=== PATIENT | female | born 2005 | race Caucasian/White ===

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

== ENCOUNTER → 2023-03-25 18:09 | Outpatient (BNVA) | payer MEDICAID, SELFPAY | PROVIDERS: Visit Provider Family Medicine | DX: R50.9 Fever, unspecified (principal); U07.1 COVID-19 | CPT/HCPCS: 87426 ==

== ENCOUNTER → 2023-06-01 16:41 | Outpatient (BNVA) | payer MEDICAID, SELFPAY | PROVIDERS: Visit Provider Registered Nurse Neonatal Intensive Care | DX: R50.9 Fever, unspecified (principal); B34.9 Viral infection, unspecified | CPT/HCPCS: 87426 ==

== ENCOUNTER 2023-07-05 22:30 | Emergency (ER) | payer MEDICAID, SELFPAY ==
[2023-07-05 22:33] VITALS: BP 128/39; PULSE 99; RESP 18; TEMP 36.8; O2SAT 99
[2023-07-05 22:54] VITALS: BP 121/68; PULSE 82; RESP 16; O2SAT 98
[2023-07-05 23:03] LABS: Basophils # 0.1 10^3/uL (0.0-0.1); Basophils % 1.2 %; Eosinophils # 0.1 10^3/uL (0.0-0.8); Eosinophils % 1.2 %; Hematocrit 37.1 % (36-47); Lymphocytes # 3.9 10^3/uL (1.5-6.5); Lymphocytes % 31.9 %; Mean Corpuscular HGB Conc 31.5 g/dL (30-55); Mean Corpuscular Hemoglobin 26.7 pg (27-33); Mean Corpuscular Volume 84.5 fl (85-98); Mean Platelet Volume 10.6 fL (7.4-10.4); Monocytes % 8.5 %; Neutrophils # 6.89 10^3/uL (1.8-8.0); Nucleated Red Blood Cells % 0 %; Platelet Count 355 10^3/cmm (157-399); Red Blood Count 4.39 10^6/uL (3.85-5.65); Red Cell Distribution Width 12.8 % (12.1-15.1); White Blood Count 12.09 10^3/uL (4.5-13.0)
[2023-07-05 23:18] LABS: HCG, Serum Qual Negative (Negative)
[2023-07-05 23:22] VITALS: BP 124/77; PULSE 86; RESP 16; O2SAT 98
[2023-07-05 23:29] LABS: Alanine Aminotransferase 19 U/L (0-33); Albumin Level 4.9 g/dL (3.5-5.2); Alkaline Phosphatase 107 U/L (35-105); Anion Gap 16.6 (5-19); Aspartate Amino Transferase 24 U/L (0-32); Blood Urea Nitrogen 14 mg/dL (6-20); Carbon Dioxide 22 mmol/L (22-29); Chloride 105 mmol/L (98-107); Globulin 2.5 g/dL (1.3-4.6); Glomerular Filtration Rate 80.7 mL/min (90-130); Glucose 93 mg/dL (65-115); Lipase 22 U/L (13-60); Osmolality Calculated 290 mOsm/kg (285-295); Potassium 3.6 mmol/L (3.5-5.1); Sodium 140 mmol/L (136-145); Total Bilirubin 0.3 mg/dL (0.15-1.2); Total Protein 7.4 g/dL (6.6-8.7)
[2023-07-05 23:33] VITALS: RESP 16
[2023-07-05] MEDS: ondansetron 2 mg/ML SDV 2 mL 4 MG IVP (23:33)
[2023-07-05] MEDS: morphine 4 mg/mL SDV 1 mL IVP (23:33)
[2023-07-06 01:18] LABS: Add Urine Microscopic? YES; Bilirubin Urine Neg (Negative); Blood Urine Trace (Negative); Glucose Urine UA Norm (Normal); Ketones Urine 3+ (Negative); Leukocyte Esterase Urine Trace (Negative); Nitrate Urine Negative (Negative); Protein Urine 1+ (Negative); Specific Gravity, Urine 1.025 (1.005-1.030); Urine Appearance Clear (CLEAR); Urine Color Yellow (Yellow); Urobilinogen Urine Neg (Negative); pH Urine 5 (5-7)
[2023-07-06 01:19] LABS: Add Urine Culture? No; Amorphous Sediment Urine 1+ /hpf; Mucus Urine 3+ /hpf; RBC Urine 0-4 /hpf (0-2); WBC Urine RARE /hpf (0-5)
[2023-07-06] MEDS: ketorolac 30 mg/mL INJ 15 MG IVP (01:28)
--- NOTE | 2023-07-06 05:35 | W.ED.ABDPA2 ---
HPI - Abdominal Pain General: Chief Complaint: Abdominal Pain Stated Complaint: abdomen pain, nausea Time Seen by Provider: 07/05/23 22:40 History of Present Illness: 17-year-old female, non, complaining of suprapubic pelvic pain. She says it is mildly worse on the right than the left. This evidently happened acutely, after intercourse. She is concerned. No vaginal bleeding. No vomiting. No fever. No dysuria prior. Associated Symptoms: Reports nausea; Denies dysuria, fever(s) and vomiting Review of Systems Const: Denies: fever(s) ENMT: Denies: throat pain Card: Denies: chest pain Resp: Denies: dyspnea GI: Reports: abdominal pain and nausea; Denies: vomiting : Reports: vaginal discharge; Denies: flank pain, difficulty voiding, dysuria or vaginal bleeding Musc: Denies: back pain PFS ED PFSH: Medical History Acute viral syndrome Social History Smoking and tobacco/nicotine status: current every day tobacco/nicotine user (vape) Alcohol intake: current Female Reproductive History: Spontaneous abortions: No Physical Exam Const: COMMON NORMALS: no acute distress GENERAL APPEARANCE: cooperative; not ill appearing and not frail appearing HENMT: COMMON NORMALS: normocephalic, atraumatic and Normal external nose present HEAD & SCALP: normocephalic and atraumatic FACE & SINUS: normal facial exam and face symmetric NOSE: Normal external nose present Eye: COMMON NORMALS: Equal, round and reactive pupils present and EOMs intact bilaterally PUPIL: Yes Equal, round and reactive pupils present Neck/C-Spine: GENERAL: Yes trachea midline Chest: CHEST: Yes Symmetrical chest wall rise Resp: COMMON NORMALS: normal respiratory effort, No retractions, No use of accessory muscles and clear to auscultation bilaterally AUSCULTATION: clear to auscultation bilaterally Cardio: COMMON NORMALS: regular rate and regular rhythm RATE: regular rate RHYTHM: regular rhythm GI: COMMON NORMALS: Normal to inspection, nondistended, normoactive bowel sounds present PALPATION: Yes Tenderness to palpation present (GI) (suprapubic) and No Guarding due to palpation present (GI) : SPECULUM EXAM - VAGINA: No erythematous, No mass, No swelling and No tenderness SPECULUM EXAM - CERVIX: No Cervical os open, Yes Cervical os closed, No Cervical bleeding, No mucoid cervix, No watery cervix, No Abnormal cervical discharge present, No Cervical lesion present, No Cervical mass present and No Cervical laceration present OB/EXTERNAL & SPECULUM: No Cervical os open Extremity: COMMON NORMALS: no pedal edema Neuro: OSCAR COMA SCALE: document GCS findings [place] coma scale eye opening: Spontaneous Oscar coma scale verbal response: Orientated Oscar coma scale motor response: Obey commands [place] coma scale total score: 15 SENSORY EXAM: Yes extremities (intact) Psych: COMMON NORMALS: speech normal SPEECH: Yes normal speech Skin: COMMON NORMALS: no rashes or lesions noted GENERAL SKIN EXAM: no rashes or lesions noted Course Vital Signs: Vital signs: Vital Signs Temperature 98.2 F 07/05/23 22:33 Pulse Rate 86 07/05/23 23:22 Respiratory Rate 16 07/05/23 23:33 Blood Pressure 124/77 07/05/23 23:22 Pulse Oximetry 98 07/05/23 23:22 MDM - Abdominal Pain Medical Decision Making Pelvic exam reveals a swollen cervix without any discharge. GC and Chlamydia samples were sent via urine. Urinalysis is negative. Other laboratory is benign including CRP which is normal at 3. Patient will return for any worsening symptoms despite treatment in the meantime. She will call for her results. Lab Data 07/05/23 22:49 07/05/23 22:49 Labs/Radiology: Laboratory Results WBC 12.09 10^3/uL (4.5-13.0) 07/05/23 22:49 RBC 4.39 10^6/uL (3.85-5.65) 07/05/23 22:49 Hgb 11.70 g/dL (12.4-14.8) L 07/05/23 22:49 Hct 37.1 % (36-47) 07/05/23 22:49 MCV 84.5 fl (85-98) L 07/05/23 22:49 MCH 26.7 pg (27-33) L 07/05/23 22:49 MCHC 31.5 g/dL (30-55) 07/05/23 22:49 RDW 12.8 % (12.1-15.1) 07/05/23 22:49 Plt Count 355 10^3/cmm (157-399) 07/05/23 22:49 MPV 10.6 fL (7.4-10.4) H 07/05/23 22:49 Neut % (Auto) 57.0 % 07/05/23 22:49 Lymph % (Auto) 31.9 % 07/05/23 22:49 [place] % (Auto) 8.5 % 07/05/23 22:49 Eos % (Auto) 1.2 % 07/05/23 22:49 Baso % (Auto) 1.2 % 07/05/23 22:49 Neut # (Auto) 6.89 10^3/uL (1.8-8.0) 07/05/23 22:49 Lymph # (Auto) 3.9 10^3/uL (1.5-6.5) 07/05/23 22:49 [place] # (Auto) 1.0 10^3/uL (0.2-0.9) H 07/05/23 22:49 Eos # (Auto) 0.1 10^3/uL (0.0-0.8) 07/05/23 22:49 Baso # (Auto) 0.1 10^3/uL (0.0-0.1) 07/05/23 22:49 Nucleated RBC % (auto) 0 % 07/05/23 22:49 Nucleated RBCs # 0.0 /100WBC 07/05/23 22:49 Sodium 140 mmol/L (136-145) 07/05/23 22:49 Potassium 3.6 mmol/L (3.5-5.1) 07/05/23 22:49 Chloride 105 mmol/L (98-107) 07/05/23 22:49 Carbon Dioxide 22 mmol/L (22-29) 07/05/23 22:49 Anion Gap 16.6 (5-19) 07/05/23 22:49 BUN 14 mg/dL (6-20) 07/05/23 22:49 Creatinine 0.9 mg/dL (0.5-0.9) 07/05/23 22:49 GFR Calculation 80.7 mL/min (90-130) L 07/05/23 22:49 Glucose 93 mg/dL (65-115) 07/05/23 22:49 Calculated Osmolality 290 mOsm/kg (285-295) 07/05/23 22:49 Calcium 10.0 mg/dL (8.5-10.5) 07/05/23 22:49 Total Bilirubin 0.3 mg/dL (0.15-1.2) 07/05/23 22:49 AST 24 U/L (0-32) 07/05/23 22:49 ALT 19 U/L (0-33) 07/05/23 22:49 Alkaline Phosphatase 107 U/L (35-105) H 07/05/23 22:49 C-Reactive Protein 3.0 mg/L (0.0-4.9) 07/05/23 22:49 Total Protein 7.4 g/dL (6.6-8.7) 07/05/23 22:49 Albumin 4.9 g/dL (3.5-5.2) 07/05/23 22:49 Globulin 2.5 g/dL (1.3-4.6) 07/05/23 22:49 Lipase 22 U/L (13-60) 07/05/23 22:49 HCG, Qual Negative (Negative) 07/05/23 22:49 Urine Color Yellow (Yellow) 07/06/23 00:55 Urine Appearance Clear (CLEAR) 07/06/23 00:55 Urine pH 5 (5-7) 07/06/23 00:55 Ur Specific [place] 1.025 (1.005-1.030) 07/06/23 00:55 Urine Protein 1+ (Negative) H 07/06/23 00:55 Urine Glucose (UA) Norm (Normal) 07/06/23 00:55 Urine Ketones 3+ (Negative) H 07/06/23 00:55 Urine Blood Trace (Negative) H 07/06/23 00:55 Urine Nitrate Negative (Negative) 07/06/23 00:55 Urine Bilirubin Neg (Negative) 07/06/23 00:55 Urine Urobilinogen Neg mg/dL (Negative) 07/06/23 00:55 Ur Leukocyte Esterase Trace (Negative) H 07/06/23 00:55 Urine RBC 0-4 /hpf (0-2) H 07/06/23 00:55 Urine WBC Rare /hpf (0-5) 07/06/23 00:55 Ur Squamous Epith Cells 5-10 /hpf (0-5) H 07/06/23 00:55 Amorphous Sediment 1+ /hpf 07/06/23 00:55 Urine Bacteria None /hpf (NONE) 07/06/23 00:55 Urine Mucus 3+ /hpf 07/06/23 00:55 No radiology studies performed this visit Discharge Plan Discharge Patient Disposition: Home Clinical Impression: Pelvic pain Condition: Stable Prescriptions: New ketorolac 10 mg tablet 10 mg PO TID PRN (Reason: pain) Qty: 10 0RF Discharge Orders: Discharge ED (Routine); Ordered 07/06/23 Ordered By: Benjy Villa Referrals: Christiano Randle MD [Primary Care Provider] - 1-3 days Patient Instructions: Pelvic Pain (ED), Opioid Safety, Pain Management Activity Restrictions/Additional Instructions: Return for worsening pain despite treatment, fever greater than 100, vomiting liquids or medications, brisk vaginal bleeding, other concerning symptoms. You may call back to get the results of your other tests as early as tomorrow afternoon. See your doctor next week. Coding Level of Care Code ED Supervisor Of Instruction for Nick Abrams
[2023-07-07 18:35] LABS: Chlamydia Trachomatis RNA TMA NOT DETECTED (NOT DETECTED); Neisseria Gonorrhoeae RNA, TMA NOT DETECTED (NOT DETECTED)
== END 2023-07-06 01:32 | disposition home or self-care (01) ==
PROVIDERS: Emergency Provider Emergency Medicine; PCP Family Medicine
DX: R10.2 Pelvic and perineal pain (principal); F17.290 Nicotine dependence, other tobacco product, uncomplicated
CPT/HCPCS: 80053; 81001; 83690; 84703; 85025; 86140; 87491; 87591; 96374; 96375; 99284; J1885; J2270; J2405

== ENCOUNTER 2024-02-20 19:57 | Emergency (ER) | payer MEDICAID, SELFPAY ==
[2024-02-20 20:09] VITALS: BP 127/82; PULSE 94; RESP 14; TEMP 37.2; O2SAT 97
--- NOTE | 2024-02-20 20:56 | ED_ITS ---
HPI - Wound/Laceration General: Chief Complaint: Wound/Laceration Stated Complaint: Busted Chin Time Seen by Provider: 02/20/24 20:15 Source: patient Mode of arrival: ambulatory Limitations: no limitations History of Present Illness: 18-year-old female who was playing softb all tonight and had a softball hit her in the chin happened just prior to arrival she denies any loss of conscious she does have a laceration to her chin denies any other injuries. Associated symptoms: Denies chills, fever(s), nausea or vomiting Review of Systems Const: Denies: fever(s) or chills ENMT: Denies: throat pain or dental pain Card: Denies: chest pain Resp: Denies: dyspnea GI: Denies: abdominal pain, nausea, vomiting or diarrhea Musc: Denies: neck pain or back pain Skin/Breast: Denies: rash Neuro: Denies: headache(s) PFS ED PFSH: Medical History Acute viral syndrome Social History Smoking and tobacco/nicotine status: current every day tobacco/nicotine user (vape) Alcohol intake: current Female Reproductive History: Spontaneous abortions: No Physical Exam Const: COMMON NORMALS: no acute distress, patient oriented x3 and healthy appearing HENMT: COMMON NORMALS: normocephalic and atraumatic HEAD & SCALP: normocephalic and atraumatic OTHER: 4 cm laceration to chin Eye: COMMON NORMALS: Equal, round and reactive pupils present and EOMs intact bilaterally PUPIL: Yes Equal, round and reactive pupils present Neck/C-Spine: COMMON NORMALS: full ROM and supple Chest: COMMONS NORMALS: normal inspection of the chest Resp: COMMON NORMALS: normal respiratory effort Cardio: COMMON NORMALS: regular rate RATE: regular rate Extremity: COMMON NORMALS: normal to inspection and full ROM Neuro: COMMON NORMALS: patient oriented x3, moves all extremities and no focal motor deficits Psych: COMMON NORMALS: mental status grossly normal, Normal thought process present and cooperative THOUGHT PROCESS: Normal thought process present Skin: COMMON NORMALS: no rashes or lesions noted and no wounds GENERAL SKIN EXAM: no rashes or lesions noted Procedures Laceration Laceration 1: Site: face Size (cm): 4 Description: linear Local Anesthetic: lidocaine 1% Amount of anesthesia used (mL): 8 Pre-repair: wound explored, irrigated extensively and deep structures intact Skin layer closed with: nylon Size (cm): 5-0 Number of sutures: 5 Technique: simple, interrupted Course Vital Signs: Vital signs: Vital Signs Temperature 98.9 F 02/20/24 20:09 Pulse Rate 94 02/20/24 20:09 Respiratory Rate 14 02/20/24 20:09 Blood Pressure 127/82 02/20/24 20:09 Pulse Oximetry 97 02/20/24 20:09 Oxygen Delivery Me thod Room Air 02/20/24 20:09 MDM - Wound/Laceration Medical Decision Making Patient presents here with a laceration to her chin laceration was repaired she is to have sutures removed in 10 days follow-up with PCP return if worsening understands agrees to plan Medical Records I reviewed the patient's medical records. No radiology studies performed this visit Discharge Plan Discharge Patient Disposition: Home Clinical Impression: Laceration Condition: Stable Prescriptions: No Action trazodone 50 mg tablet 50 mg PO DAILY ondansetron 4 mg tablet,disintegrating 4 mg PO Q6H PRN (Reason: nausea and vomiting) Qty: 10 0RF Discharge Orders: Discharge ED (Routine); Ordered 02/20/24 Ordered By: Serena Mahajan Referrals: Christiano Randle MD [Primary Care Provider] - 7-10 days Discharge Diet: Advance as tolerated Discharge Activity: Resume usual activity Patient Instructions: Care For Your Stitches (ED), Laceration (ED) Activity Restrictions/Additional Instructions: suture removal in 10 days Stand Alone Forms: Work/School Release Coding Level of Care Code ED Quality Assurance/R&D Lab Technician for Nick Abrams
== END 2024-02-20 21:22 | disposition home or self-care (01) ==
PROVIDERS: Emergency Provider Emergency Medicine; PCP Family Medicine
DX: S01.81XA Laceration without foreign body of other part of head, initial encounter (principal); F17.290 Nicotine dependence, other tobacco product, uncomplicated; W21.07XA Struck by softball, initial encounter; Y93.64 Activity, baseball
CPT/HCPCS: 12013; 99282

== ENCOUNTER 2024-04-03 22:06 | Emergency (ER) | payer MEDICAID, SELFPAY ==
[2024-04-03 22:11] VITALS: BP 105/70; PULSE 111; RESP 18; TEMP 36.8; O2SAT 100
--- NOTE | 2024-04-03 22:16 | XRR_ITS ---
PROCEDURE INFORMATION: Exam: XR Right Ankle Exam date and time: 04/03/2024 10:30 PM Age: 18 years old Clinical indication: Injury or trauma; Fall; Blunt trauma; Right; Patient HX: C/O RT ankle pain after jumping off of rooftop into a pool. Diffuse swelling noted to ankle. ; Additional info: Fall/pain/swelling TECHNIQUE: Imaging protocol: Radiologic exam of the right ankle. Views: 3 or more views. COMPARISON: No relevant prior studies available. FINDINGS: Bones/joints: No acute fracture or dislocation. Ankle mortise appears preserved. Soft tissues: Soft tissue swelling. XR/XR ankle RT min 3V* [id number] IMPRESSION: 1. No acute fracture or dislocation. 2. Soft tissue swelling.
--- NOTE | 2024-04-03 23:50 | ED_ITS ---
HPI - Extremity Problem General: Chief complaint: Extremity Injury, Lower Stated complaint: Ankle injury Time Seen by Provider: 04/03/24 23:35 Source: patient Mode of arrival: wheelchair Limitations: no limitations History of Present Illness: Patient is 18-year-old female presenting to the emergency department complaining of right ankle pain prior to arrival. Patient reporting that she had an ankle injury, unknown exactly what happened as it all happened so quick. However she has not been able to bear weight on that foot, no swelling to the medial and lateral aspect. It is tender radiating up to mid conn, also has some pain with range of motion. No distal sensory changes reported. She does arrive in a wheelchair, appears in distress from the pain. No previous surgeries or injuries to that foot. No other symptoms reported at this time. MD Complaint: joint pain Location: right and lower extremity Radiation: proximal Relieving factors: nothing Exacerbating factors: range of motion, weight bearing and walking Associated symptoms: Deny chest pain, fever(s) or rash Review of Systems General: Reports: 10 or more systems reviewed and unremarkable except in HPI and below Const: Denies: fever(s) or chills Card: Denies: chest pain Resp: Denies: dyspnea or productive cough GI: Denies: abdominal pain, nausea, vomiting or diarrhea : Denies: flank pain Musc: Reports: extremity pain, joint pain (Right ankle), joint swelling and limited range of motion; Denies: neck pain, back pain, extremity swelling, joint redness, joint warmth or muscle weakness Skin/Breast: Denies: rash Neuro: Denies: headache(s), numbness in extremities or weakness in extremities PFS ED PFSH: Medical History Acute viral syndrome Social History Smoking and tobacco/nicotine status: current every day tobacco/nicotine user (vape) Alcohol intake: current Female Reproductive History: Spontaneous abortions: No Physical Exam Const: COMMON NORMALS: patient oriented x3, no limitations, healthy appearing, alert and well nourished GENERAL APPEARANCE: in distress HENMT: COMMON NORMALS: normocephalic and atraumatic HEAD & SCALP: no rmocephalic and atraumatic Neck/C-Spine: COMMON NORMALS: full ROM, supple and no meningeal signs Resp: COMMON NORMALS: normal respiratory effort, No use of accessory muscles and clear to auscultation bilaterally AUSCULTATION: clear to auscultation bilaterally Cardio: COMMON NORMALS: regular rate and regular rhythm RATE: regular rate RHYTHM: regular rhythm Extremity: COMMON NORMALS: capillary refill normal, no clubbing, cyanosis or edema, no calf tenderness and no pedal edema NARRATIVE EXTREMITY EXAM: Swelling noted to the medial and lateral malleolus of the right foot. This area is exquisitely tender to palpation. Good pulses. Positive ankle squeeze test. Negative calcaneal squeeze. Severely limited range of motion due to the pain. No bruising or traumatic deformity noted on examination. Neuro: COMMON NORMALS: patient oriented x3, moves all extremities, no focal motor deficits and no sensory deficits noted SENSORIUM/ORIENTATION: Yes alert MENINGEAL SIGNS: Yes no meningeal signs Skin: COMMON NORMALS: no rashes or lesions noted GENERAL SKIN EXAM: no rashes or lesions noted Course Vital Signs: Vital signs: Vital Signs Temperature 98.2 F 04/03/24 22:11 Pulse Rate 111 H 04/03/24 22:11 Respiratory Rate 18 04/03/24 22:11 Blood Pressure 105/70 04/03/24 22:11 Pulse Oximetry 100 04/03/24 22:11 Oxygen Delivery Me thod Room Air 04/03/24 22:11 MDM - Extremity (Nontraumatic) Medical Decision Making Patient presented with a right ankle injury after unspecified fall at a pool constitution party. She is unsure of exactly what happened, however has edema noted to the lateral aspect, some to the medial aspect of the right ankle. Exquisitely tender and she has not been able to bear weight. X-rays performed and there there was soft tissue swelling noted, no obvious fracture. On examination she did have a positive high ankle squeeze and due to the amount of pain and swelling already, I do believe she has a high ankle sprain and I will for her orthopedics. She will be given crutches and placed in Lenin bandage, instructed to do RICE therapy and return with any new or worsening symptoms. XR interpretation done by ED provider, pending radiology final review ED provider radiology interpretation(s): X-ray right ankle. Soft tissue swelling noted to lateral malleolus. No obvious fracture or dislocation at this time. Discharge Plan Discharge Patient Disposition: Home Clinical Impression: High ankle sprain Qualifiers: Encounter type: initial encounter Laterality: right Qualified Code(s): S93.491A - Sprain of other ligament of right ankle, initial encounter Condition: Stable Prescriptions: No Action trazodone 50 mg tablet 50 mg PO DAILY ondansetron 4 mg tablet,disintegrating 4 mg PO Q6H PRN (Reason: nausea and vomiting) Qty: 10 0RF Discharge Orders: Discharge ED (Routine); Ordered 04/04/24 Ordered By: Chinmay Germain Referrals: Christiano Randle MD [Primary Care Provider] - Discharge Diet: As Directed Discharge Activity: Use walker/crutches as instructed Patient Instructions: Ankle Sprain (ED) Activity Restrictions/Additional Instructions: Use crutches as needed. Rest, ice, compression, and elevation. Follow-up with orthopedics as needed. Take Tylenol or ibuprofen for any pain. Gentle range of motion exercises and weightbearing as tolerated. Return with any new or concerning symptoms you may have. Coding Level of Care Code ED Deli Manager for Nick Abrams
[2024-04-04] MEDS: naproxen 500 mg Tablet PO (00:11)
[2024-04-04 00:13] VITALS: BP 116/70; PULSE 99; O2SAT 97
[2024-04-04 00:30] VITALS: BP 116/69; PULSE 87; O2SAT 100
--- NOTE | 2024-04-04 03:15 | DCPLANNER ---
Message sent to Ortho for follow up. High ankle sprain.
== END 2024-04-04 01:22 | disposition home or self-care (01) ==
PROVIDERS: Emergency Provider Physician Assistant; PCP Family Medicine
DX: S93.491A Sprain of other ligament of right ankle, initial encounter (principal); F17.290 Nicotine dependence, other tobacco product, uncomplicated; X58.XXXA Exposure to other specified factors, initial encounter
CPT/HCPCS: 73610; 99283

== ENCOUNTER 2024-05-05 14:19 | Outpatient (CLI) | payer MEDICAID, SELFPAY ==
--- NOTE | 2024-05-05 14:30 | MR_ITS ---
WS: [id number] MRI OF THE RIGHT LOWER EXTREMITY. INDICATION: Trauma jumping in pool. TECHNIQUE: Sagittal T1, sagittal STIR, coronal T1, coronal STIR, axial PD, axial T2 fat-sat FINDINGS: Patient will be returning for MRI ankle at a later date Suggestion of tiny nondisplaced hairline fracture involving the proximal tibial metaphysis extending to the articular surface medial greater than lateral tibial plateau. Diffuse edema involving the prox imal tibia extending to the articular surface and tibial plateau posteriorly. In addition, small nondisplaced fracture with edema involving the head of the fibula. Tibial shaft ap pears normal. Partially visualized edema in the posterior tibial plafond and. MR/MR lower leg RT wo con* [id number] IMPRESSION: Some images are graded by motion. 1. Nondisplaced hairline fracture involving the proximal tibial metaphysis whi ch appears to extend to the medial and lateral tibial plateau posteriorly worse involving the medial tibial plateau. This extends to the articular surface wit h diffuse edema. Minimal depression of the tibial plateau. Findings could be fo llowed up with CT to assess for healing. 2. Additional small nondisplaced fracture with edema involving the head of the fibula. 3. Partially visualized edema in the posterior tibial plafond. MRI of the ankl e to be performed at a later date.
== END 2024-05-05 14:20 | disposition home or self-care (01) ==
LOC: RAD 14:19
PROVIDERS: PCP Family Medicine; Visit Provider Podiatrist Foot & Ankle Surgery
DX: S82.454A Nondisplaced comminuted fracture of shaft of right fibula, initial encounter for closed fracture (principal); S82.101A Unspecified fracture of upper end of right tibia, initial encounter for closed fracture; M95.8 Other specified acquired deformities of musculoskeletal system; R60.0 Localized edema; X58.XXXA Exposure to other specified factors, initial encounter
CPT/HCPCS: 73718

== ENCOUNTER 2024-05-07 14:12 | Outpatient (CLI) | payer MEDICAID, SELFPAY ==
--- NOTE | 2024-05-07 14:30 | MRR_ITS ---
PROCEDURE INFORMATION: Exam: MR Right Lower Extremity Joint Without Contrast; Ankle Exam date and time: 05/07/2024 2:23 PM Age: 18 years old Clinical indication: Pain and injury or trauma; Other: Jumped from rope into pool and hit bottom of pool jamming ankle; Blunt trauma; Right; Additional info: Surgical planning, -suspect gastric tear TECHNIQUE: Imaging protocol: Magnetic resonance imaging of the right lower extremity without contrast. Exam focused on the ankle. COMPARISON: CR (LOW EXM, ) 04/03/2024 10:30 PM FINDINGS: Bones/joints: Cancellous bone edema of the posterior distal tibial epiphysis. Diffuse cancellous bone edema of the central-medial talar dome and posterior talar body extending to the subchondral posterior facet. Cancellous bone edema of the posterior base of the 1st and 2nd metatarsals. Mild cancellous bone edema of the plantar proximal medial cuneiform. Cancellous bone edema of the posterior medial malleolus and anterior distal fibula. Small tibiotalar joint effusion. An os tibiale externum is present, a sometimes symptomatic normal variant. Mild subchondral bone impaction posterolateral talar dome (series 1001, image 12). LIGAMENTS: Distal tibiofibular syndesmosis: Complete lateral tear of the anterior tibiofibular ligament (series 401, image 12). Anterior talofibular ligament: Unremarkable. No tear. Anterior tibiofibular: Unremarkable. No tear Posterior tibiofibular ligament: Low-grade partial tear of the posterior tibiofibular ligament (series 401, image 14), mild focal periosteal stripping of the upper lateral margin of the tibial attachment (series 401, image 12). Calcaneofibular ligament: No tear. Deltoid ligament complex: Unremarkable. No tear. TENDONS: Flexor tendons of foot: Unremarkable as visualized. Tibialis posterior tendon: Unremarkable as visualized. Peroneal tendons: Unremarkable as visualized. Extensor tendons of foot: Unremarkable as visualized. Tibialis anterior tendon: Unremarkable as visualized. Achilles tendon: Unremarkable as visualized. Tarsal canal (Sinus tarsi): Unremarkable. Normal signal of the fat. Tarsal tunnel: Unremarkable. Soft tissues: Mild bimalleolar soft tissue edema. Plantar fascia: Plantar fascia is unremarkable. MR/MR ankle RT wo con* [id number] IMPRESSION: 1. Complete tear of the anterior tibiofibular ligament. 2. Low-grade partial tears of the posterior talofibular ligament. 3. Multiple bone bruises. 4. Mild subchondral bone impaction fracture posterolateral talar dome 5. Small tibiotalar joint effusion.
== END 2024-05-07 14:13 | disposition home or self-care (01) ==
LOC: RAD 14:12
PROVIDERS: PCP Family Medicine; Visit Provider Podiatrist Foot & Ankle Surgery
DX: S93.431A Sprain of tibiofibular ligament of right ankle, initial encounter (principal); S92.144A Nondisplaced dome fracture of right talus, initial encounter for closed fracture; S90.01XA Contusion of right ankle, initial encounter; M95.8 Other specified acquired deformities of musculoskeletal system; W16.522A Jumping or diving into swimming pool striking bottom causing other injury, initial encounter
CPT/HCPCS: 73721

== ENCOUNTER 2024-05-25 14:25 | Outpatient (RCR) | payer MEDICAID, SELFPAY | END 2024-06-01 23:59 | disposition home or self-care (01) | LOC: SPT 14:25 | PROVIDERS: PCP Family Medicine; Visit Provider Podiatrist Foot & Ankle Surgery | DX: S93.401D Sprain of unspecified ligament of right ankle, subsequent encounter (principal); S82.51XD Displaced fracture of medial malleolus of right tibia, subsequent encounter for closed fracture with routine healing; X58.XXXD Exposure to other specified factors, subsequent encounter | CPT/HCPCS: 97161 ==

== ENCOUNTER 2024-06-02 06:00 | Outpatient (RCR) | payer MEDICAID, SELFPAY | END 2024-07-02 23:59 | disposition home or self-care (01) | LOC: SPT 06:00 | PROVIDERS: PCP Family Medicine; Visit Provider Podiatrist Foot & Ankle Surgery | DX: S93.401D Sprain of unspecified ligament of right ankle, subsequent encounter (principal); S82.51XD Displaced fracture of medial malleolus of right tibia, subsequent encounter for closed fracture with routine healing; X58.XXXD Exposure to other specified factors, subsequent encounter | CPT/HCPCS: 97110; 97112 ==

== ENCOUNTER 2024-07-03 06:00 | Outpatient (RCR) | payer MEDICAID, SELFPAY | END 2024-07-10 23:59 | disposition home or self-care (01) | LOC: SPT 06:00 | PROVIDERS: PCP Family Medicine; Visit Provider Podiatrist Foot & Ankle Surgery | DX: S93.401D Sprain of unspecified ligament of right ankle, subsequent encounter (principal); S82.51XD Displaced fracture of medial malleolus of right tibia, subsequent encounter for closed fracture with routine healing; X58.XXXD Exposure to other specified factors, subsequent encounter | CPT/HCPCS: 97110 ==

== ENCOUNTER 2024-11-11 00:06 | Emergency (ER) | payer MEDICAID, SELFPAY ==
[2024-11-11 00:08] VITALS: BP 113/74; PULSE 95; RESP 15; TEMP 36.7; O2SAT 100; BMI 19.5
--- NOTE | 2024-11-11 00:11 | ECG_ITS ---
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
--- NOTE | 2024-11-11 00:23 | XRR_ITS ---
PROCEDURE INFORMATION: Exam: XR Chest Exam date and time: 11/11/2024 1:25 AM Age: 19 years old Clinical indication: Chest pressure and chest wall pain; Additional info: Chest pain TECHNIQUE: Imaging protocol: Radiologic exam of the chest. Views: 1 view. COMPARISON: CR XR chest 2V* [id number] 11/13/2018 11:01 PM FINDINGS: Lungs: Unremarkable. No consolidation. Pleural spaces: Unremarkable. No pleural effusion. No pneumothorax. Heart/Mediastinum: Unremarkable. No cardiomegaly. Bones/joints: Unremarkable. XR/XR chest 1V portable [id number] IMPRESSION: No acute findings.
[2024-11-11 01:07] LABS: Basophils # 0.1 10^3/uL (0.0-0.1); Basophils % 0.8 %; Eosinophils # 0.2 10^3/uL (0.0-0.8); Eosinophils % 1.6 %; Lymphocytes # 2.6 10^3/uL (0.8-4.8); Lymphocytes % 17.4 %; Mean Corpuscular HGB Conc 32.1 g/dL (30-55); Mean Corpuscular Hemoglobin 28.3 pg (27-33); Mean Corpuscular Volume 88.2 fl (85-98); Mean Platelet Volume 10.1 fL (7.4-10.4); Monocytes # 0.9 10^3/uL (0.2-0.9); Monocytes % 5.8 %; Neutrophils # 11.19 10^3/uL (1.8-7.7); Neutrophils % 74.1 %; Nucleated Red Blood Cells % 0 %; Platelet Count 258 10^3/cmm (157-399); Red Blood Count 4.42 10^6/uL (3.85-5.65); Red Cell Distribution Width 12.3 % (12.1-15.1)
[2024-11-11 01:29] LABS: HCG Qualitative Urine. Negative (Negative)
[2024-11-11 01:30] LABS: Alanine Aminotransferase 9 U/L (0-33); Albumin Level 4.7 g/dL (3.5-5.2); Alkaline Phosphatase 72 U/L (35-105); Anion Gap 15.7 (5-19); Aspartate Amino Transferase 15 U/L (0-32); Blood Urea Nitrogen 13 mg/dL (6-20); Calcium 9.4 mg/dL (8.5-10.5); Carbon Dioxide 25 mmol/L (22-29); Chloride 102 mmol/L (98-107); Creatinine Clr Calc Pharmacy 91.2028; Globulin 2.9 g/dL (1.3-4.6); Glomerular Filtration Rate 105.6 mL/min (90-130); Glucose 83 mg/dL (65-115); Lipase 15 U/L (13-60); Osmolality Calculated 287 mOsm/kg (285-295); Potassium 3.7 mmol/L (3.5-5.1); Sodium 139 mmol/L (136-145); Total Bilirubin 0.4 mg/dL (0.15-1.2); Total Protein 7.6 g/dL (6.6-8.7)
[2024-11-11] MEDS: lidocaine 2% viscous 15 ML, aluminum-mag hydrox-simethicon 30 ML, sucralfate oral liq 1 GM PO (01:32)
[2024-11-11] MEDS: famotidine 20 mg/2 mL INJ 40 MG IVP (01:33)
[2024-11-11 01:37] VITALS: BP 121/64; PULSE 81; RESP 16; O2SAT 100
[2024-11-11 01:39] LABS: Bilirubin Urine 1+ (Negative); Blood Urine Negative (Negative); Glucose Urine UA Negative (Normal); Ketones Urine 2+ (Negative); Leukocyte Esterase Urine 1+ (Negative); Nitrate Urine Positive (Negative); Protein Urine Trace (Negative); Specific Gravity, Urine 1.021 (1.005-1.030); Urine Appearance Clear (CLEAR); Urine Color Dark Yellow (Yellow); pH Urine 5.5 (5-7)
[2024-11-11 01:44] LABS: Bacteria Urine None Seen /hpf; Hyaline Casts Urine 0.81 /lpf; RBC Urine 0-2 /hpf (0-2); Squamous Epithelial Cell Urine 0-5 /hpf (0-5); WBC Urine 21-50 /hpf (0-5)
[2024-11-11 01:47] LABS: Add Urine Culture? Yes
--- NOTE | 2024-11-11 02:14 | W.ED.CHESTPA ---
HPI - Chest Pain General: Chief Complaint: Chest Pain Stated Complaint: Chest Pain Time Seen by Provider: 11/11/24 01:24 History of Present Illness: 19-year-old female presents emergency room with chest pain. Said it started a few hours ago. Substernal chest and radiates into her gastric region. She has a history of heartburn took meds but did not help. She has had similar episodes over the last few weeks but today is worse. She think she has GERD but has not had an official diagnosis. No cough. No shortness of breath. No abdominal pain. She says she did have some urinary symptoms earlier today but took some Azo and it has been improved. Related Data Home Medications ?Medication ?Instructions ?Recorded ?Confirmed trazodone 50 mg tablet 50 mg PO DAILY 01/20/24 06/30/24 Previous Rx's ?Medication ?Instructions ?Recorded ondansetron 4 mg disintegrating 4 mg PO Q6H PRN nausea and 01/20/24 tablet vomiting #10 tabs CAM walker #1 ea 04/13/24 ASO to right #1 ea 05/18/24 cefdinir 300 mg capsule 300 mg PO BID 5 days #10 caps 11/11/24 omeprazole 40 mg capsule,delayed 40 mg PO DAILY #30 caps 11/11/24 release phenazopyridine 100 mg tablet 100 mg PO Q8H 6 doses #6 tabs 11/11/24 (Pyridium) Allergies Allergy/AdvReac Type Severity Reaction Status Date / Time No Known Allergies Allergy Verified 11/11/24 00:18 Review of Systems Narrative: Constitutional symptoms: Negative except as documented in HPI. Skin symptoms: Negative except as documented in HPI. Eye symptoms: Negative except as documented in HPI. ENMT symptoms: Negative except as documented in HPI. Respiratory symptoms: Negative except as documented in HPI. Cardiovascular symptoms: Negative except as documented in HPI. Gastrointestinal symptoms: Negative except as documented in HPI. Genitourinary symptoms: Negative except as documented in HPI. Musculoskeletal symptoms: Negative except as documented in HPI. Neurologic symptoms: Negative except as documented in HPI. Psychiatric symptoms: Negative except as documented in HPI. Endocrine symptoms: Negative except as documented in HPI. PFSH ED PFSH: Medical History Acute viral syndrome Social History (Reviewed 06/30/24 @ 09:55 by ILEANA Hubbard Smoking and tobacco/nicotine status: current every day tobacco/nicotine user Alcohol intake: current Female Reproductive History: Date of last menstrual period: 11/07/24 Spontaneous abortions: No Physical Exam Narrative: EXAM NARRATIVE: General: Alert, no acute distress. Skin: Warm, dry. Head: Normocephalic, atraumatic. Neck: Supple, trachea midline. Eye: Extraocular movements are intact. Ears, nose, mouth and throat: mucosa moist. Cardiovascular: Regular, Normal peripheral perfusion. Respiratory: Lungs are clear to auscultation, respirations are non-labored, breath sounds are equal, Symmetrical chest wall expansion. Gastrointestinal: Soft, Nontender, Non distended Musculoskeletal: Normal ROM, no deformity. Neurological: Alert and oriented, No focal neurological deficit observed. Psychiatric: Cooperative, appropriate mood & affect. Course Vital Signs: Vital signs: Vital Signs Temperature 98.0 F 11/11/24 00:08 Pulse Rate 81 11/11/24 01:37 Respiratory Rate 16 11/11/24 01:37 Blood Pressure 121/64 11/11/24 01:37 Pulse Oximetry 100 11/11/24 01:37 Oxygen Delivery Me thod Room Air 11/11/24 00:08 MDM - Chest Pain Medical Decision Making Differential diagnosis for patient with chest pain includes but is not limited to and based on the above HPI, review of systems and physical exam: Pneumonia. unstable angina. angina. Acute coronary syndrome / [place]. Pulmonary embolism. Costochondritis / musculoskeletal. Pleurisy. Pericarditis. Esophageal spasm. Pancreatis. Cholecystitis. Orders placed to evaluate differential diagnosis based on the above differential, HPI and physical exam Chest x-ray: No acute process. No infiltrate. No pneumothorax. Films were interpreted by myself the emergency room provider and pending final radiology review. Lab Review: Laboratory results were reviewed and interpreted by myself the emergency room physician. Lab work is fairly unremarkable. Mild leukocytosis. No anemia. No renal failure. Flu COVID and RSV are negative. Patient does have a significant urinary tract infection. Lipase is negative. I reviewed the patient's medical record. Reexamination: Patient had some improvement with Toradol and Rocephin. Also given some famotidine. And a GI cocktail. Assessment and plan: Noncardiac chest pain Urinary tract infection ? IV famotidine and p.o. GI cocktail. ? Rocephin and Toradol. - Discharged home - Discussed plan with patient. Answered any questions. - Evaluation and treatment of this problem were appropriate in the emergency setting. Lab Data 11/11/24 00:53 11/11/24 00:53 Laboratory Results WBC 15.10 10^3/uL (3.29-11.43) H 11/11/24 00:53 RBC 4.42 10^6/uL (3.85-5.65) 11/11/24 00:53 Hgb 12.50 g/dL (11.27-16.99) 11/11/24 00:53 Hct 39.0 % (36-47) 11/11/24 00:53 MCV 88.2 fl (85-98) 11/11/24 00:53 MCH 28.3 pg (27-33) 11/11/24 00:53 MCHC 32.1 g/dL (30-55) 11/11/24 00:53 RDW 12.3 % (12.1-15.1) 11/11/24 00:53 Plt Count 258 10^3/cmm (157-399) 11/11/24 00:53 MPV 10.1 fL (7.4-10.4) 11/11/24 00:53 Neut % (Auto) 74.1 % 11/11/24 00:53 Lymph % (Auto) 17.4 % 11/11/24 00:53 [place] % (Auto) 5.8 % 11/11/24 00:53 Eos % (Auto) 1.6 % 11/11/24 00:53 Baso % (Auto) 0.8 % 11/11/24 00:53 Neut # (Auto) 11.19 10^3/uL (1.8-7.7) H 11/11/24 00:53 Lymph # (Auto) 2.6 10^3/uL (0.8-4.8) 11/11/24 00:53 [place] # (Auto) 0.9 10^3/uL (0.2-0.9) 11/11/24 00:53 Eos # (Auto) 0.2 10^3/uL (0.0-0.8) 11/11/24 00:53 Baso # (Auto) 0.1 10^3/uL (0.0-0.1) 11/11/24 00:53 Nucleated RBC % (auto) 0 % 11/11/24 00:53 Nucleated RBCs # 0.0 /100WBC 11/11/24 00:53 Sodium 139 mmol/L (136-145) 11/11/24 00:53 Potassium 3.7 mmol/L (3.5-5.1) 11/11/24 00:53 Chloride 102 mmol/L (98-107) 11/11/24 00:53 Carbon Dioxide 25 mmol/L (22-29) 11/11/24 00:53 Anion Gap 15.7 (5-19) 11/11/24 00:53 BUN 13 mg/dL (6-20) 11/11/24 00:53 Creatinine 0.7 mg/dL (0.5-0.9) 11/11/24 00:53 GFR Calculation 105.6 mL/min (90-130) 11/11/24 00:53 Glucose 83 mg/dL (65-115) 11/11/24 00:53 Calculated Osmolality 287 mOsm/kg (285-295) 11/11/24 00:53 Calcium 9.4 mg/dL (8.5-10.5) 11/11/24 00:53 Total Bilirubin 0.4 mg/dL (0.15-1.2) 11/11/24 00:53 AST 15 U/L (0-32) 11/11/24 00:53 ALT 9 U/L (0-33) 11/11/24 00:53 Alkaline Phosphatase 72 U/L (35-105) 11/11/24 00:53 C-Reactive Protein 13.0 mg/L (0.0-4.9) H 11/11/24 00:53 Total Protein 7.6 g/dL (6.6-8.7) 11/11/24 00:53 Albumin 4.7 g/dL (3.5-5.2) 11/11/24 00:53 Globulin 2.9 g/dL (1.3-4.6) 11/11/24 00:53 Lipase 15 U/L (13-60) 11/11/24 00:53 HCG, Qual Negative (Negative) 11/11/24 01:21 Urine Color Dark yellow (Yellow) A 11/11/24 01:21 Urine Appearance Clear (CLEAR) 11/11/24 01:21 Urine pH 5.5 (5-7) 11/11/24 01:21 Ur Specific Byron 1.021 (1.005-1.030) 11/11/24 01:21 Urine Protein Trace (Negative) A 11/11/24 01:21 Urine Glucose (UA) Negative (Normal) 11/11/24 01:21 Urine Ketones 2+ (Negative) H 11/11/24 01:21 Urine Blood Negative (Negative) 11/11/24 01:21 Urine Nitrate Positive (Negative) A 11/11/24 01:21 Urine Bilirubin 1+ (Negative) H 11/11/24 01:21 Urine Urobilinogen 1.0 mg/dL (Negative) 11/11/24 01:21 Ur Leukocyte Esterase 1+ (Negative) A 11/11/24 01:21 Urine RBC 0-2 /hpf (0-2) 11/11/24 01:21 Urine WBC 21-50 /hpf (0-5) H 11/11/24 01:21 Ur Squamous Epith Cells 0-5 /hpf (0-5) 11/11/24 01:21 Amorphous Sediment Not Reportable 11/11/24 01:21 Urine Bacteria None seen /hpf (NONE) 11/11/24 01:21 Hyaline Casts 0.81 /lpf 11/11/24 01:21 Influenza A (PCR) Negative (Negative) 11/11/24 01:18 Influenza Type B (PCR) Negative (Negative) 11/11/24 01:18 RSV (PCR) Negative (Negative) 11/11/24 01:18 SARS-CoV-2 (PCR) Negative (Negative) 11/11/24 01:18 XR interpretation done by ED provider, pending radiology final review Discharge Plan Discharge Patient Disposition: Home Clinical Impression: Non-cardiac chest pain, Urinary tract infection Condition: Stable Prescriptions: New omeprazole 40 mg capsule,delayed release(DR/EC) 40 mg PO DAILY Qty: 30 0RF phenazopyridine [Pyridium] 100 mg tablet 100 mg PO Q8H Qty: 6 0RF cefdinir 300 mg capsule 300 mg PO BID 5 Days Qty: 10 0RF No Action (DME) CAM kami See Rx Instructions .Route .MEDSUPPLY Qty: 1 0RF Rx Instructions: As directed (DME) ASO to right See Rx Instructions .Route .MEDSUPPLY Qty: 1 0RF Rx Instructions: As directed trazodone 50 mg tablet 50 mg PO DAILY ondansetron 4 mg tablet,disintegrating 4 mg PO Q6H PRN (Reason: nausea and vomiting) Qty: 10 0RF Discharge Orders: Discharge ED (Routine); Ordered 11/11/24 Ordered By: Alivia Pinzon Referrals: Christiano Randle MD [Primary Care Provider] - Discharge Diet: Usual diet Discharge Activity: Increase activity as tolerated Patient Instructions: Urinary Tract Infection in Women (ED), Indigestion (ED), Noncardiac Chest Pain (ED), Opioid Safety, Pain Management Activity Restrictions/Additional Instructions: Thank you for choosing [facility] for your healthcare needs today. Please realize this is an emergency room and that we are providing you with a medical screening exam and this may not be complete and all inclusive of all the testing and or work up that you may need to determine your ailment or severity of your illness. You have been screened and evaluated and felt safe for discharge. Health conditions do change or evolve sometimes and as such it is important that you follow up with your Primary Doctor to be re checked, 3-5 days is a general good time frame for follow up. You are always welcome to return to the ED for re assessment if your symptoms are worsening or you have new concerns Print Language: Tanzanian Coding Level of Care Code ED Computer Mechanic for Nick Abrams
[2024-11-11 02:15] LABS: Influenza A NEGATIVE (Negative); Influenza B NEGATIVE (Negative); Respiratory Syncytial Virus Ce NEGATIVE (Negative); SARS-CoV-2 PCR NEGATIVE (Negative)
[2024-11-11] MEDS: ketorolac 30 mg/mL INJ IVP (02:50)
[2024-11-11] MEDS: cefTRIAXone 1,000 mg SDV 1000 MG IVP (02:52)
[2024-11-11 03:24] VITALS: BP 111/78; PULSE 91; O2SAT 98
== END 2024-11-11 03:10 | disposition home or self-care (01) ==
PROVIDERS: Emergency Provider Emergency Medicine; PCP Family Medicine
DX: R07.89 Other chest pain (principal); N39.0 Urinary tract infection, site not specified; Z72.0 Tobacco use
CPT/HCPCS: 36415; 71045; 80053; 81001; 81025; 83690; 85025; 86140; 87086; 87637; 93005; 96374; 96375; 99285; J0696; J1885; J3490

== ENCOUNTER → 2025-05-16 16:08 | Outpatient (BNVA) | payer SELFPAY | PROVIDERS: PCP Family Medicine; Visit Provider Registered Nurse Neonatal Intensive Care | DX: R39.9 Unspecified symptoms and signs involving the genitourinary system (principal); N89.8 Other specified noninflammatory disorders of vagina | CPT/HCPCS: 81000; 87491; 87591; 87661 ==